=== PATIENT | female | born 1990 | race Caucasian/White ===

== ENCOUNTER → 2024-06-15 | Outpatient (CLI) | payer BC, SELFPAY ==
--- NOTE | 2024-06-15 14:13 | US_ITS ---
STUDY: SUPERFICIAL ULTRASOUND - LEFT CERVICAL AREA REASON FOR EXAM: Female, 34 years old. left posterior neck soft tissue mass TECHNIQUE: A superficial ultrasound was performed with real-time and static leblanc-scale imaging. COMPARISON: None. FINDINGS: At area of palpable concern in the left neck, there is a 9.4 x 6.3 x 3.9 cm slightly heterogeneous fat containing lesion in the subcutaneous tissue. No internal vascularity. US/Head/Neck Soft Tissue IMPRESSION: 9 cm fat-containing lesion in the subcutaneous tissue of the left neck. This most likely represents a lipoma, however due to its large size cannot rule out other etiologies such as liposarcoma. Consider tissue sampling. Electronically Signed: Selwyn Cevallos MD at 18:36 EST ,
== END | disposition home or self-care (01) ==
PROVIDERS: PCP Nurse Practitioner Family; Referring Provider Nurse Practitioner Family; Visit Provider Nurse Practitioner Family
DX: M79.89 Other specified soft tissue disorders (principal)
CPT/HCPCS: 76536

== ENCOUNTER 2024-07-13 10:08 | Day surgery (SDC) | payer BC, SELFPAY ==
--- NOTE | 2024-07-11 08:48 | PAT.ANESEVAL ---
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 When Was Last Pacemaker Check QUESTION #4 FULL TEXT: You/Your Family Experience fever (hyperthermia) with Anesthesia Last Oral Intake Last Oral intake: Last Oral Intake NPO since Meds taken in AM with sips of water? 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 Female Yes 07/11/24 08:21 HX of Motion Sickness Yes 07/11/24 08:21 HX of N/V After Surgery No 07/11/24 08:21 Non-Smoker Yes 07/11/24 08:21 Duration of Surgery greater Yes 07/11/24 08:21 than 60 minutes Number of Risk Factors 4 07/11/24 08:21 PONV Score Severe Risk 07/11/24 08:21 Height & Weight Height & Weight: Anesthesia: Height & Weight Height 5 ft 3 in 05/27/24 09:07 Respiratory Assessment Respiratory Assessment - bus driver supervisor: Respiratory Tract Infection Hx - bus driver supervisor Hx Respiratory Tract Infection No 07/11/24 08:21 STOP Sleep Apnea STOP Sleep Apnea - bus driver supervisor: STOP Sleep Apnea - bus driver supervisor Hx Hypertension No 07/11/24 08:21 Hx Sleep Apnea No 07/11/24 08:21 CPAP BIPAP Do you snore loudly (louder No 07/11/24 08:21 than talking or can be heard Do you often feel tired/ No 07/11/24 08:21 fatigued/ sleepy during daytime? Has anyone observed you stop No 07/11/24 08:21 breathing during sleep? STOP Results Negative 07/11/24 08:21 QUESTION #5 FULL TEXT : Do you snore loudly (louder than talking or can be heard through closed doors)? 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 Specify any problems Hx of Preganancy in last 3 No 07/11/24 08:21 Months Nurse Filling Out Transfusion MGRIFFITH 07/11/24 08:21 & Questions: Date: 07/11/24 07/11/24 08:21 Time: 08:23 07/11/24 08:21 Patient unable to answer at this time (ie. 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 Home Medications ?Medication ?Instructions ?Recorded ?Last Taken ?Type NK 08/13/21 Unknown History Allergy/AdvReac Type Severity Reaction Status Date / Time No Known Allergies Allergy Verified 07/11/24 08:20 Family History Mother Thyroid disorder Grandmother Diabetes CVA (cerebral vascular accident) Social History Smoking Status: Never smoker alcohol intake: never substance use type: does not use additional social history: no marijuana, no vaping, no edibles, no asa or ibuprofen, no hx blood clotting dx Audit: Pertinent Findings Pertinent Findings Additional pertinent findings: Left lower tooth is loose Recommendation Anesthesia Recommendation Anesthesia recommendation: OPTIMIZED for anesthesia
[2024-07-13] VITALS (10 sets, daily range): BP systolic 99–109; BP diastolic 63–82; PULSE 64–108; RESP 14–18; TEMP 36–37; O2SAT 96–100; BMI 19.5
[2024-07-13 10:33] LABS: Internal QC Validated? YES +Cl - CLEAR BKGD; Pregnancy, Urine Negative Negative
[2024-07-13] MEDS: 0.9% Normal Saline (1000mL) 1,000 ML 15 ML IV (10:36)
--- NOTE | 2024-07-13 10:42 | PRE.ANES_ITS ---
ASA Classification* ASA Classification ASA Classification: 2 Assessment & Plan Anesthesia* Anesthesia Assessment Anesthesia Assessment: Discussed sedation and/or anesthesia options, risks, benefits, and alternatives with patient/parents/legal guardian/POA. Questions invited. The patient/parents/legal guardian/POA seems to understand and agrees to proceed with anesthesia plan. Reviewed the physical assessment, medical history, allergy history and patient home medications list prior to surgery/procedure/anesthetic and documented any changes. Performed airway and anesthesia risk assessments. Anesthesia Type Anesthesia Type: General History Source History Obtained from:: Patient and Chart Anesthesia Focused Assessment* Temperature: 98.6 F Pulse Rate: 85 Blood Pressure: 108/64 Respiratory Rate: 16 Pulse Ox: 100 Oxygen Delivery Method: Room Air Airway Assessment Mouth opens: >3 cm Mallampati Score: I Teeth Condition: Chipped/Broken (Patient has several broken chipped teeth lower molars.) Neck Range of motion (ROM): Limited ROM (Slight decrease in extension) Focused Labs Anesthesia Preop lab: CBC CHEMISTRY COAG Urine Test Negative Negative 07/13/24 10:15 07/13/24 Pre-Assessment Diagnosis/Proposed Procedure Planned Operative Procedure(s): (L) Excision left posterior neck mass Anesthesia History 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 When Was Last Pacemaker Check QUESTION #4 FULL TEXT: You/Your Family Experience fever (hyperthermia) with Anesthesia Last Oral Intake Last Oral intake: Last Oral Intake NPO since 20:00 07/13/24 10:32 Meds taken in AM with sips of No 07/13/24 10:32 water? 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 Female Yes 07/11/24 08:21 HX of Motion Sickness Yes 07/11/24 08:21 HX of N/V After Surgery No 07/11/24 08:21 Non-Smoker Yes 07/11/24 08:21 Duration of Surgery greater Yes 07/11/24 08:21 than 60 minutes Number of Risk Factors 4 07/11/24 08:21 PONV Score Severe Risk 07/11/24 08:21 Height & Weight Height & Weight: Anesthesia: Height & Weight Height 5 ft 3 in 07/13/24 10:32 Weight: 50 kg 07/13/24 10:32 Body Mass Index (BMI) 19.5 07/13/24 10:32 Respiratory Assessment Respiratory Assessment - 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 Has anyone observed you stop No 07/11/24 08:21 breathing during sleep? STOP Results Negative 07/11/24 08:21 QUESTION #5 FULL TEXT : Do you snore loudly (louder than talking or can be heard through closed doors)? 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 Specify any problems Hx of Preganancy in last 3 No 07/11/24 08:21 Months Nurse Filling Out Transfusion MGRIFFITH 07/11/24 08:21 & Questions: Date: 07/11/24 07/11/24 08:21 Time: 08:23 07/11/24 08:21 Patient unable to answer at this time (ie. 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 saw operator: /Reproductive Hx- stave log cut off saw operator Hx Now No 07/11/24 08:21 Gestational Age (in weeks): EDC: Hx Hx Para Hx Section SAB No 07/11/24 08:21 Active Medications Active Medications: Current Medications Generic Name Dose Route Start Last Admin Trade Name Freq PRN Reason Stop Dose Admin Cefazolin Sodium 2 gm/ N/A 20 mls @ 400 mls/hr 07/13/24 11:45 IV 07/13/24 11:47 PREOP ONE Sodium Chloride 1,000 mls @ 15 mls/hr 07/13/24 10:20 07/13/24 10:36 IV 07/18/24 23:39 15 mls/hr .Q48H DARREN Administration Protocol PFSH Medical History Loose, teeth Back pain Injury of head and neck Syncope Non-smoker Home Medications ?Medication ?Instructions ?Recorded ?Last Taken ?Type NK 08/13/21 Unknown History Allergy/AdvReac Type Severity Reaction Status Date / Time No Known Allergies Allergy Verified 07/13/24 10:32 Family History Mother Thyroid disorder Grandmother Diabetes CVA (cerebral vascular accident) Surgical History (Updated 07/13/24 @ 10:[address] 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
--- NOTE | 2024-07-13 10:56 | HP.PCM.SX_ITS ---
HPI - General HPI Narrative HPI 25 Feb 2024: Samina Pierre is a 34-year-old female with no significant past medical history aside from a left neck mass that has been growing steadily over the past 8 years. In 2015 the same spot on her neck was seen and evaluated by her family medicine physician in [place], [place], who per patient report made an incision and scraped the mass out. She does not remember seeing any pathology reports and says that her family medicine physician told her that it was just benign fat. Ever since then the mass has been steadily growing. No history of any congenital head or neck or spine masses. The mass was not there until 2016 when she was well into adulthood. Denies any constitutional symptoms like weight loss or night sweats. No new lumps or bumps on the head or neck. The mass does not cause her pain per se except occasionally she feels like the left side of her face is hurting (maybe every other month) and she wonders if this is coming from the mass. No numbness or tingling on the face. She is not a smoker. No history of any bleeding or clotting problems personally or within her family. She does not take any medications daily. She does not smoke. 27 May 2024: Lost to follow up this fall. We tried calling and scheduling and unable to get her to clinic, but she returns today for follow up. She reports problems with insurance ([employer] funded/self). [id number] offering to also help with costs, so she would like to pursue MRI now. No change really in the mass since last visit. No weight loss, no new lumps/bumps. She does not take any hormone therapy. Caprini score is 2 01 Jul 2024: Discussed results of the MRI. Well-circumscribed fatty mass consistent with lipoma that is superficial to the musculature of the neck. Talk to her extensively about surgery today. She would like to proceed. Current Encounter (DATE OF SURGERY H&P UPDATE): I saw and examined the patient this morning in pre-operative holding. We discussed risks and benefits of toda y's surgery and they would like to proceed. NO CHANGE in health history since last seen and evaluated. Ready to proceed with surgery. PFSH Medical History Loose, teeth Back pain Injury of head and neck Syncope Non-smoker Home Medications ?Medication ?Instructions ?Recorded ?Last Taken ?Type NK 08/13/21 Unknown History Allergy/AdvReac Type Severity Reaction Status Date / Time No Known Allergies Allergy Verified 07/13/24 10:32 Family History Mother Thyroid disorder Grandmother Diabetes CVA (cerebral vascular accident) Surgical History (Updated 07/13/24 @ 10:[address] 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 Social History Smoking Status: Never smoker alcohol intake: never substance use type: does not use additional social history: no marijuana, no vaping, no edibles, no asa or ibuprofen, no hx blood clotting dx Vital Signs Vital Signs Vital Signs: 07/13/24 10:32 07/13/24 10:32 07/13/24 10:48 Temperature 98.6 F 98.6 F Temperature Source Temporal Pulse Rate 85 85 Respiratory Rate 16 16 Respiratory Pattern Normal Blood Pressure 108/64 108/64 Blood Pressure Mean 78 Blood Pressure Source Monitor Blood Pressure Position Sitting Blood Pressure Location Left Arm Pulse Ox 100 100 Oxygen Delivery Method Room Air Room Air Weight Weight: 110 lb 3.698 oz Body Mass Index (BMI) 19.5 Physical Exam Narrative General: cooperative and healthy appearing HENLA Ears: hearing grossly normal bilaterally Face and sinus: normal facial exam and other Other: Cranial nerve exam: Cranial nerve II: visual acuity intact. Cranial nerves III, IV and : extraocular movements intact, no diplopia with extraocular movements. Cranial nerve V: sensation to light touch intact in all 3 distributions of cranial nerve V. Cranial nerve VII:She is able to raise eyebrows, closes eyes, smile, purse lips, and move his lower lip to show his lower teeth symmetrically on both sides. CN 12: Good ROM of neck, turns neck from side to side and fires trapezius to lift shoulders (shrugs) Neck Neck: full ROM Neck mass: Yes ( large approximately 8 x 10 cm mass, left upper lateral posterior neck) Lymphatic: no lymphadenopathy noted (She does not have any palpable lymph nodes on her neck. No parotid masses.) Other: The mass is mobile and does not feel like it is fixed, however it is directly over the posterior triangle. Negative Tinel's sign. Results Lab / Micro Data Labs: Laboratory Results - last 24 hr 07/13/24 10:15: Urine Test Negative Assessment & Plan Assessment/Plan (1) Mass of soft tissue of neck: PLAN: 25 Feb 2024, initial consult: I talked to the patient extensively about the mass today. We talked about potential damage to surrounding structures including nerves (cranial nerve XI in particular, as well as sensory nerves, and the deficits/problems that would happen). I talked her extensively about how the mass could come back and how it may require multiple stages for revision of scar or revision of redundant soft tissue (skin excess) secondary to the size of the mass and need for reconstruction of her hairline. We also talked about risk of infection or failure to obtain the desired result. She understood these risks. I talked her about the need for advanced imaging. Given the location of the mass and how it is right over the posterior triangle I believe an MRI for surgical planning is most appropriate form of imaging. We have ordered an ultrasound and an MRI with and without contrast. I will follow-up with her in 2 to 3 weeks to go over the results of the advanced imaging and further discuss surgery. Plan from 27 May 2024: I talked the patient extensively about the risks of surgery, including bleeding, infection, damage to surrounding structures, surgical site dehiscence and wound formation, need for wound care, need for repeat operations, failure to obtain the desired result, DVT/PE, and the risks of anesthesia including . The benefits and alternatives of this surgery were also discussed. Plan for MRI for better characterization and for pre-operative planning. F/u after MRI Plan from 01 Jul 2024: I talked to the patient extensively again about the risks of surgery today, notably damage to the sensory nerves coming from the posterior triangle and cranial nerve XI (raises shoulders and turns head as innervates the SCM and the trapezium). We also talked about the risks of bleeding and infection. I talked her about postoperative care and drains. I talked her about lifting restrictions. We also talked about recurrence. We talked about need for repeat surgeries. We also talked about reconstruction of the scalp and the skin in this area as she has a significant amount of redundancy. I talked her about asymmetries and distortions in her hair and hairline. I talked her about the need for revisions. She was in agreement with the plan for removal. She would like to proceed. Plan for removal with general anesthesia, prone positioning. INTERVAL H&P PLAN, DATE OF SURGERY: We will proceed with surgery today. I re-iterated the previous discussions as documented above to day in pre-operative holding. We talked about the risks, benefits, and alternatives.
[2024-07-13] MEDS: Cefazolin 2 GM in Syringe IV (11:22)
--- NOTE | 2024-07-13 11:55 | MASS_PTH ---
PATIENT: JAZLYN MEDEIROS [place] [facility] [place][id number] AGE/SX: 34/F ROOM: RE07/13/[address]: Dr. Hema Bee MD : 1990 BED: DIS: 07/13/2024 SPEC #: [id number] RECD: 07/13/24 13:35 STATUS: MIRANDA YON #: [id number] MASSIEL: 07/13/24 11:[address]: Hema Bee DEPT: SURGICAL PATHOLOGY RECD BY: Deepthi Garcia ENTERED: 07/13/24 14:19 SP TYPE: Mass OTHR DR: No Primary Care Phys Tissues: Skin of neck, NOS Procedures: Surgery Specimen Level IV HEADER OPERATION: Excision left posterior neck mass and complex closure PRE-OP DIAGNOSIS: Mass soft tissue left posterior TISSUE SUBMITTED: Left neck mass MICROSCOPIC DIAGNOSIS Left neck mass, excision: Mature adipose tissue, consistent with lipoma. SJ.mr 07/15/2024 MICROSCOPIC DESCRIPTION Slides are reviewed. GROSS DESCRIPTION Received in fixative is one container labeled with the patient's name and designated left neck mass. The specimen consists of an ovoid piece of adipose tissue measuring 11 x 9 x 5 cm. The external surface is inked. Sections reveal yellow adipose cut surfaces without areas of hemorrhage, necrosis or cystic degeneration. Wireless Sales Associate sections are submitted in four cassettes. Sections will be submitted after additional fixation. 07/13/2024 TC:1 CPT:69515
[2024-07-13] MEDS: Bupiv/Epi 0.25% 30 ML Vial (12:00)
[2024-07-13] MEDS: Lidocaine 1% /Epi 1:100 (20ml) 20 ML Vial (12:00)
--- NOTE | 2024-07-13 12:46 | PCM.POST.ANE ---
Anesthesia: Postop Eval I Current Vital Signs Temperature: 96.8 F Pulse Rate: 108 Blood Pressure: 108/63 Respiratory Rate: 18 Pulse Ox: 99 Oxygen Delivery Method: Room Air Assessment Airway patent: Yes Spontaneous unlabored respirations: Yes Mental status: Asleep nausea: No Vomiting: No Anesthesia Complication: No Fluid Hydration Crystalloid volume administer (ml): 800 Total IV fluid infused: 800 Progress Note Anesthesia document: Postop Eval 1 completed: Yes
--- NOTE | 2024-07-13 13:18 | POSTOPAN2_ITS ---
Anesthesia Postop Eval I Sum Postop Eval Completion status Anesthesia document: Postop Eval 1 completed: Yes Anesthesia Postop Eval I Summary Anesthesia Postop Eval I Summary: Anesthesia Postop Eval I: Assessment Summary Airway patent Yes 07/13/24 12:47 HYPERION ESSBASE [email or web address].[email or web address] Spontaneous unlabored Yes 07/13/24 12:47 HYPERION ESSBASE [email or web address].[email or web address] respirations Mental status Asleep 07/13/24 12:47 HYPERION ESSBASE DEVELOPER.BETTYLI nausea No 07/13/24 12:47 HYPERION ESSBASE DEVELOPER.BETTYLI Vomiting No 07/13/24 12:47 HYPERION ESSBASE [email or web address].[email or web address] Anesthesia Postop Eval I: Fluid Summary Crystalloid volume administer 800 07/13/24 12:47 HYPERION ESSBASE DEVELOPER.JCLI (ml) Colloids volume administered ( ml) Blood Product volume administered (ml) Total IV fluid infused 800 07/13/24 12:47 HYPERION ESSBASE [email or web address].[email or web address] Anesthesia Postop Eval I: Summary Notes Anesthesia Complication No 07/13/24 12:47 HYPERION ESSBASE [email or web address].[email or web address] Anesthesia Complication Comment: Post-operative progress note Anesthesia: Postop Eval II Evaluation Mental status: Awake and Calm Pain Level: 1 nausea: No Vomiting: No
--- NOTE | 2024-07-13 13:18 | PCM.POSTANE2 ---
Anesthesia Postop Eval I Sum Postop Eval Completion status Anesthesia document: Postop Eval 1 completed: Yes Anesthesia Postop Eval I Summary Anesthesia Postop Eval I Summary: Anesthesia Postop Eval I: Assessment Summary Airway patent Yes 07/13/24 12:47 [email or web address] Spontaneous unlabored Yes 07/13/24 12:47 LOG [email or web address] respirations Mental status Asleep 07/13/24 12:47 [email or web address] nausea No 07/13/24 12:47 LOG [email or web address] Vomiting No 07/13/24 12:47 LOG [email or web address] Anesthesia Postop Eval I: Fluid Summary Crystalloid volume administer 800 07/13/24 12:47 LOG [email or web address].[email or web address] (ml) Colloids volume administered ( ml) Blood Product volume administered (ml) Total IV fluid infused 800 07/13/24 12:47 LOG [email or web address].[email or web address] Anesthesia Postop Eval I: Summary Notes Anesthesia Complication No 07/13/24 12:47 LOG [email or web address].[email or web address] Anesthesia Complication Comment: Post-operative progress note Anesthesia: Postop Eval II Evaluation Mental status: Awake and Calm Pain Level: 1 nausea: No Vomiting: No
--- NOTE | 2024-07-14 21:10 | OP.PCM_ITS ---
Operative Report (Standard) Operative Information Date of Procedure: 07/13/24 Pre-Operative Diagnosis: Left posterior neck mass Post-Operative Diagnosis: Same Surgery/Procedure Performed: 1) Excision of fatty left posterior neck mass, 9 X 10 cm, CPT: 10089 2) Complex closure, left posterior neck, 9 cm, CPT: 51994, 86991 pododermatologist: Yes Senior Ui Designer: Mary Rai Tasks completed by curriculum assistant principal: Retracting Type of Anesthesia: General/Supplemental (20 cc of 0.25% Marcaine with 1:200,000 epinephrine ) RN Documented Start/Stop Times: Operation Date: 07/13/24 11:55 Case Time Into Pre-Op 07/13/24 10:15 Anesthesia Start 07/13/24 11:03 Into Room 07/13/24 11:03 Out of Pre-Op 07/13/24 11:03 Procedure Start 07/13/24 11:37 Procedure End 07/13/24 12:31 Anesthesia End 07/13/24 12:41 Out of Room 07/13/24 12:41 Into Recovery 07/13/24 12:43 Out of Recovery 07/13/24 13:29 Into Phase II Recovery 07/13/24 13:31 Out of Phase II 07/13/24 16:09 Procedure Start Time: 11:37 Procedure Stop Time: 12:31 Select all DRAINS/GRAFTS/IMPLANTS that apply: Drains (10 Bulgarian Johann drain) Drain details: 10 Bulgarian Johann drain given extensive space Estimated Blood Loss: 10 Specimen collected: Yes Description of specimen(s) removed: Fatty mass from posterior left neck Description of surgery: Indications: Patient is a delightful 34-year-old female with a 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 I talked her about the risks, benefits, and alternatives to removal and she elected to proceed. Procedure details: Patient was correct identified in preoperative holding and the mass was marked. She was taken back to the operating room where she was administered general anesthesia. She was prepped and draped in sterile fashion and all proper timeouts were performed. All bony prominences were padded and the eyes were protected. Local was injected and given time to take effect. A 15 blade scalpel was used to make a direct incision over the mass parallel to the hairline. Dissection was taken down into the subcutaneous tissue with Metzenbaum scissors for careful dissection around the mass. Hemostasis was obtained with Bovie electrocautery. Care was taken to preserve cutaneous nerves. The mass was removed in 1 piece and was sent to pathology. The wound bed was irrigated with copious amounts normal saline and Irrisept. Attention was then turned to the closure. A 10 Bulgarian Johann drain was placed and tunneled out to the inferior portion of the neck and sutured into place with a silk suture. There was a significant amount of redundancy in the tissue of the neck and the scalp, as the lipoma had essentially acted as a tissue gravel roofer. The wound edges were therefore debrided/excised in a manner parallel to the hairline to better reapproximate the hairline and attempt to match the contralateral posterior neck hairline. The scalp flaps were darted and stapled. Once the appropriate amount of tissue excision was identified, the excess scalp was removed with curved Rey scissors, as was the excess neck skin. Hemostasis was obtained with Bovie electrocautery. Two sutures were placed to obliterate some of the space with 3-0 Vicryl suture to the fascia and the overlying skin and scalp flaps. Deep 3-0 PDS deep dermal sutures were placed followed by yakov. Kerlix, ABD, and a burn net were applied. The patient tolerated the procedure well and was awakened and taken to the PACU in stable condition. Surgical Findings: * Fatty mass from posterior left neck * Excess skin/scalp requiring removal/debridement for closure to reapproximate the hairline Complications Complications: No Admit VTE Documentation VTE Present on Admission: No VTE Mechan Device Prophylaxis: SCD's
== END 2024-07-13 16:09 | disposition home or self-care (01) ==
LOC: SDC 10:08 → AC 10:10
PROVIDERS: Anesthesiology; Referring Provider Surgery Plastic and Reconstructive Surgery; Visit Provider Surgery Plastic and Reconstructive Surgery
PROC: (CPT 21552; principal; 2024-07-13 11:40)
DX: R22.1 Localized swelling, mass and lump, neck (principal)
CPT/HCPCS: 21552; 13132; 13133; 00300; 81025; 88305; A4216; J2405